=== PATIENT | female | born 1995 | race Asian ===

== ENCOUNTER 2019-01-27 23:26 | Emergency (ER) | payer SELFPAY ==
[~2019-01-27] VITALS: Ht 162.6 cm; Wt 63.5 kg
[~2019-01-27 23:26] MED LIST: PNV1TABL25 PO
[2019-01-27] MEDS ORDERED: ONDANSETRON PF 4 MG/2 ML VIAL. IV ONE (23:45)
[2019-01-27] MEDS ORDERED: IV NORMAL SALINE 1000ML BAG 1,000 ML IV ONE (23:45)
[2019-01-27 23:52] LABS: BILIRUBIN,URINE NEGATIVE (NEG); CLARITY,URINE CLEAR; COLOR,URINE YELLOW; NITRITE,URINE NEGATIVE (NEG); PH,URINE 7.5; PROTEIN,URINE NEGATIVE (NEG-TRACE)
[2019-01-27 23:54] LABS: BASO # 0.1 x10^3/uL (0.0-0.2); BASO % 1 % (0-3); EOS # 0.5 x10^3/uL (0.0-0.7); EOS % 5 % (0-3); HEMATOCRIT 40.1 % (36.0-47.0); HEMOGLOBIN 13.2 g/dL (12.0-15.5); LYMPH # 2.8 x10^3/uL (1.0-4.8); LYMPH % 31 % (24-48); MEAN CORPUSCULAR HEMOGLOBIN 28 pg (25-35); MEAN CORPUSCULAR HGB CONC 33 g/dL (31-37); MEAN CORPUSCULAR VOLUME 85 fL (79-100); MONO # 0.8 x10^3/uL (0.0-1.1); MONO % 9 % (0-9); NEUT % 55 % (31-73); PLATELET COUNT 257 x10^3/uL (140-400); RED BLOOD COUNT 4.73 x10^6/uL (3.50-5.40); RED CELL DISTRIBUTION WIDTH 14.1 % (11.5-14.5); WHITE BLOOD COUNT 9.2 x10^3/uL (4.0-11.0)
[2019-01-27 23:56] LABS: SQUAMOUS EPITHELIAL CELL,UR FEW /LPF
[2019-01-27 23:57] LABS: AMORPHOUS SEDIMENT,UR PRESENT /HPF; BACTERIA,URINE FEW /HPF (0-FEW); RBC,URINE RARE /HPF (0-2)
--- NOTE | 2019-01-27 23:59 | PHYS DOC ---
Past Medical History Past Medical History: No Pertinent History Past Surgical History: No Surgical History Alcohol Use: None Drug Use: None Adult General Chief Complaint Chief Complaint: NAUSEA/VOMITING/DIARRHA HPI HPI Patient is a 23-year-old otherwise healthy female who presents with dizziness, weakness and nausea. She states she is concerned she may be . She has not actually vomited today. She denies any fever chills or sweats. She denies pain anywhere. No vaginal bleeding or discharge. She denies dyspareunia.[] Review of Systems Review of Systems Constitutional: Denies fever or chills [] Eyes: Denies change in visual acuity, redness, or eye pain [] HENT: Denies nasal congestion or sore throat [] Respiratory: Denies cough or shortness of breath [] Cardiovascular: No additional information not addressed in HPI [] GI: Reports nausea[] : Denies dysuria or hematuria [] Musculoskeletal: Denies back pain or joint pain [] Integument: Denies rash or skin lesions [] Neurologic: Denies headache, focal weakness or sensory changes [] Endocrine: Denies polyuria or polydipsia [] All other systems were reviewed and found to be within normal limits, except as documented in this note. Current Medications Current Medications Current Medications Medications (Trade) Dose Ordered Sig/Jaime Start Time Stop Time Status Last Admin Dose Admin Ondansetron HCl (Zofran) 4 mg 1X ONCE 01/27/19 23:45 01/27/19 23:46 DC 01/27/19 23:55 4 MG Sodium Chloride 1,000 ml @ 1,000 mls/hr 1X ONCE 01/27/19 23:45 01/28/19 00:44 01/27/19 23:52 1,000 MLS/HR Allergies Allergies Allergies Coded Allergies Type Severity Reaction Last Updated Verified No Known Drug Allergies 12/31/18 No Physical Exam Physical Exam Constitutional: Well developed, well nourished, no acute distress, non-toxic appearance. [] HENT: Normocephalic, atraumatic, bilateral external ears normal, oropharynx moist, no oral exudates, nose normal. [] Eyes: PERRLA, EOMI, conjunctiva normal, no discharge. [] Neck: Normal range of motion, no tenderness, supple, no stridor. [] Cardiovascular:Heart rate regular rhythm, no murmur [] Lungs & Thorax: Bilateral breath sounds clear to auscultation [] Abdomen: Bowel sounds normal, soft, no tenderness, no masses, no pulsatile masses. [] Skin: Warm, dry, no erythema, no rash. [] Back: No tenderness, no CVA tenderness. [] Extremities: No tenderness, no cyanosis, no clubbing, ROM intact, no edema. [] Neurologic: Alert and oriented X 3, normal motor function, normal sensory function, no focal deficits noted. [] Psychologic: Affect normal, judgement normal, mood normal. [] Current Patient Data Vital Signs Vital Signs Date Time Temp Pulse Resp B/P (MAP) Pulse Ox O2 Delivery O2 Flow Rate FiO2 01/27/19 23:35 98.4 63 12 107/58 (74) 98 Room Air 98.4 Lab Values Laboratory Tests Test 01/27/19 23:30 01/27/19 23:44 01/27/19 23:45 Urine Collection Type Unknown Urine Color Yellow Urine Clarity Clear Urine pH 7.5 Urine Specific [place] 1.020 Urine Protein Negative mg/dL (NEG-TRACE) Urine Glucose (UA) Negative mg/dL (NEG) Urine Ketones (Stick) Negative mg/dL (NEG) Urine Blood Negative (NEG) Urine Nitrite Negative (NEG) Urine Bilirubin Negative (NEG) Urine Urobilinogen Dipstick 1.0 mg/dL (0.2 mg/dL) Urine Leukocyte Esterase Moderate (NEG) Urine RBC Rare /HPF (0-2) Urine WBC 5-10 /HPF (0-4) Urine Squamous Epithelial Cells Few /LPF Urine Amorphous Sediment Present /HPF Urine Bacteria Few /HPF (0-FEW) Urine Mucus Mod /LPF POC Urine HCG, Qualitative Hcg negative (Negative) White Blood Count 9.2 x10^3/uL (4.0-11.0) Red Blood Count 4.73 x10^6/uL (3.50-5.40) Hemoglobin 13.2 g/dL (12.0-15.5) Hematocrit 40.1 % (36.0-47.0) Mean Corpuscular Volume 85 fL (79-100) Mean Corpuscular Hemoglobin 28 pg (25-35) Mean Corpuscular Hemoglobin Concent 33 g/dL (31-37) Red Cell Distribution Width 14.1 % (11.5-14.5) Platelet Count 257 x10^3/uL (140-400) Neutrophils (%) (Auto) 55 % (31-73) Lymphocytes (%) (Auto) 31 % (24-48) Monocytes (%) (Auto) 9 % (0-9) Eosinophils (%) (Auto) 5 % (0-3) H Basophils (%) (Auto) 1 % (0-3) Neutrophils # (Auto) 5.0 x10^3/uL (1.8-7.7) Lymphocytes # (Auto) 2.8 x10^3/uL (1.0-4.8) Monocytes # (Auto) 0.8 x10^3/uL (0.0-1.1) Eosinophils # (Auto) 0.5 x10^3/uL (0.0-0.7) Basophils # (Auto) 0.1 x10^3/uL (0.0-0.2) Sodium Level 141 mmol/L (136-145) Potassium Level 3.7 mmol/L (3.5-5.1) Chloride Level 104 mmol/L (98-107) Carbon Dioxide Level 28 mmol/L (21-32) Anion Gap 9 (6-14) Blood Urea Nitrogen 13 mg/dL (7-20) Creatinine 0.9 mg/dL (0.6-1.0) Estimated GFR (Cockcroft-Gault) 78.3 BUN/Creatinine Ratio 14 (6-20) Glucose Level 86 mg/dL (70-99) Calcium Level 8.7 mg/dL (8.5-10.1) Total Bilirubin 0.4 mg/dL (0.2-1.0) Aspartate Amino Transferase (AST) 18 U/L (15-37) Alanine Aminotransferase (ALT) 22 U/L (14-59) Alkaline Phosphatase 48 U/L (46-116) Total Protein 7.5 g/dL (6.4-8.2) Albumin 3.7 g/dL (3.4-5.0) Albumin/Globulin Ratio 1.0 (1.0-1.7) Lipase 116 U/L (73-393) Laboratory Tests 01/27/19 23:45 Laboratory Tests 01/27/19 23:45 EKG EKG [] Radiology/Procedures Radiology/Procedures [] Course & Med Decision Making Course & Med Decision Making Pertinent Labs and Imaging studies reviewed. (See chart for details) [] Dragon Disclaimer Dragon Disclaimer This electronic medical record was generated, in whole or in part, using a voice recognition dictation system. Departure Departure Impression: Primary Impression: Nausea Additional Impression: Urinary tract infection Disposition: HOME, SELF-CARE Condition: STABLE Referrals: NO PCP (PCP) Patient Instructions: Nausea, Adult, Urinary Tract Infection Additional Instructions: Take medication as directed. Return to the emergency department with any new or concerning symptoms Scripts Sulfamethoxazole/Trimethoprim (BACTRIM DS TABLET) 1 Each Tablet 1 TAB PO BID, #10 TAB Prov: TONE ZAMORA DO 01/28/19 Problem Qualifiers Additional Impression: Urinary tract infection Urinary tract infection type: acute cystitis Hematuria presence: without hematuria Qualified Codes: N30.00 - Acute cystitis without hematuria TONE ZAMORA DO Jan 27, 2019 23:59
[2019-01-28 00:09] LABS: CALCIUM 8.7 mg/dL (8.5-10.1); CREATININE 0.9 mg/dL (0.6-1.0); GFR 78.3; POTASSIUM 3.7 mmol/L (3.5-5.1)
[2019-01-28 00:18] LABS: ALBUMIN 3.7 g/dL (3.4-5.0); TOTAL BILIRUBIN 0.4 mg/dL (0.2-1.0); TOTAL PROTEIN 7.5 g/dL (6.4-8.2)
[2019-01-28] MEDS ORDERED: SULF1TAB24 PO (00:33)
[2019-01-28 00:46] VITALS: BP 114/74
== END 2019-01-28 00:45 | disposition home or self-care (01) ==
LOC: ER 23:26
DX: N30.00 Acute cystitis without hematuria (principal); R42 Dizziness and giddiness
CPT/HCPCS: 36415; 80053; 81001; 81025; 83690; 85025; 87086; 96361; 96374; 99284; J2405; J7030

== ENCOUNTER 2019-06-04 17:34 | Emergency (ER) | payer OTHER ==
[~2019-06-04] VITALS: Ht 162.6 cm; Wt 72.6 kg
[~2019-06-04 17:34] MED LIST changes: +SULF1TAB24 PO
[2019-06-04 19:25] LABS: BILIRUBIN,URINE NEGATIVE (NEG); CLARITY,URINE CLEAR; COLOR,URINE YELLOW; NITRITE,URINE NEGATIVE (NEG); PROTEIN,URINE NEGATIVE (NEG-TRACE); UROBILINOGEN,URINE 0.2 mg/dL (0.2 mg/dL)
[2019-06-04 19:35] LABS: BACTERIA,URINE MODERATE /HPF (0-FEW); RBC,URINE OCC /HPF (0-2); SQUAMOUS EPITHELIAL CELL,UR MOD /LPF
[2019-06-04] MEDS ORDERED: MECLIZINE HCL 12.5 MG TABLET. PO ONE (19:45)
[2019-06-04 19:50] LABS: INFLUENZA A PATIENT NEGATIVE (NEGATIVE); INFLUENZA B PATIENT NEGATIVE (NEGATIVE)
--- NOTE | 2019-06-04 20:00 | PHYS DOC ---
Past Medical History Past Medical History: No Pertinent History (BERNIE RENE APRN) Past Surgical History: No Surgical History (BERNIE RENE APRN) Alcohol Use: None Drug Use: None (BERNIE RENE APRN) Attending Signature I have participated in the care of this patient and I have reviewed and agree with all pertinent clinical information above including history, exam, and recommendations. (PACO HICKEY MD) Adult General Chief Complaint Chief Complaint: NAUSEA/VOMITING/DIARRHA HPI HPI Patient is a 24 year old female who presents with dizziness and nausea that started today. She denies any headache, vomiting, diarrhea, fever, neck pain, back pain, abd pain, dysuria, cough, syncope, visual changes, chest pain, soa. denies pain. (BERNIE RENE APRN) Review of Systems Review of Systems GI: Denies abdominal pain. + nausea, denies vomiting, bloody stools or diarrhea [] Neurologic: Dizziness. Denies headache, focal weakness or sensory changes [] All other systems were reviewed and found to be within normal limits, except as documented in this note. (BERNIE RENE APRN) Current Medications Current Medications Current Medications Medications (Trade) Dose Ordered Sig/Jaime Start Time Stop Time Status Last Admin Dose Admin Meclizine HCl (Antivert) 25 mg 1X ONCE 06/04/19 19:45 06/04/19 19:46 DC 06/04/19 20:30 25 MG (PACO HICKEY MD) Allergies Allergies Allergies Coded Allergies Type Severity Reaction Last Updated Verified No Known Drug Allergies 12/31/18 No (PACO HICKEY MD) Physical Exam Physical Exam Constitutional: Well developed, well nourished, no acute distress, non-toxic appearance. [] HENT: Normocephalic, atraumatic, bilateral external ears normal, oropharynx moist, no oral exudates, nose normal. [] Eyes: PERRLA, EOMI, conjunctiva normal, no discharge. Slight nystagmus.[] Neck: Normal range of motion, no tenderness, supple, no stridor. [] Cardiovascular:Heart rate regular rhythm, no murmur [] Lungs & Thorax: Bilateral breath sounds clear to auscultation [] Abdomen: Bowel sounds normal, soft, no tenderness, no masses, no pulsatile masses. [] Skin: Warm, dry, no erythema, no rash. [] Back: No tenderness, no CVA tenderness. [] Extremities: No tenderness, no cyanosis, no clubbing, ROM intact, no edema. [] Neurologic: Alert and oriented X 3, normal motor function, normal sensory function, no focal deficits noted. [] Psychologic: Affect normal, judgement normal, mood normal. [] (BERNIE RENE APRN) Current Patient Data Vital Signs Vital Signs Date Time Temp Pulse Resp B/P (MAP) Pulse Ox O2 Delivery O2 Flow Rate FiO2 06/04/19 22:15 69 17 118/61 (80) 98 Room Air 06/04/19 19:03 97.9 97.9 (PACO HICKEY MD) Lab Values Laboratory Tests Test 06/04/19 19:15 06/04/19 19:18 Urine Collection Type Unknown Urine Color Yellow Urine Clarity Clear Urine pH 6.0 Urine Specific [place] 1.015 Urine Protein Negative mg/dL (NEG-TRACE) Urine Glucose (UA) Negative mg/dL (NEG) Urine Ketones (Stick) Negative mg/dL (NEG) Urine Blood Negative (NEG) Urine Nitrite Negative (NEG) Urine Bilirubin Negative (NEG) Urine Urobilinogen Dipstick 0.2 mg/dL (0.2 mg/dL) Urine Leukocyte Esterase Moderate (NEG) Urine RBC Occ /HPF (0-2) Urine WBC 1-4 /HPF (0-4) Urine Squamous Epithelial Cells Mod /LPF Urine Bacteria Moderate /HPF (0-FEW) Urine Mucus Marked /LPF Influenza Type A Antigen Negative (NEGATIVE) Influenza Type B Antigen Negative (NEGATIVE) POC Urine HCG, Qualitative Hcg negative (Negative) (PACO HICKEY MD) EKG EKG [] (BERNIE RENE APRN) Radiology/Procedures Radiology/Procedures [] (BERNIE RENE APRN) Impressions: [facility] [address] [place] [address] IMAGING REPORT Signed PATIENT: MELI MOHAN ACCOUNT: [id number] : 1995 LOCATION: ER AGE: 24 SEX: F EXAM STATUS: REG ER ORD. PHYSICIAN: BERNIE RENE APRN REASON: dizzy x today; no trauma PROCEDURE: CT HEAD WO CONTRAST CT head without contrast: Reason for examination: Dizziness tonight. No history,. Axial images were obtained through the brain. No contrast was administered. Exposure: One or more of the following individualized dose reduction techniques were utilized for this examination: 1. Automated exposure control 2. Adjustment of the mA and/or kV according to patient size 3. Use of iterative reconstruction technique. Ventricular systems are symmetric and not abnormally dilated. No midline shift is seen. There is no evidence of intracranial hemorrhage, infarct or edema. 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 No abnormalities are seen at the orbits. There is some mild mucosal disease in some of the left ethmoid air cells. There is also a small fluid level in the left maxillary antrum. The remaining paranasal sinuses are clear. Mastoid air cells are clear. No acute abnormality seen in the skull. 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 Mild mucosal disease in a few of the left ethmoid air cells. Small fluid level in the left maxillary antrum. Recommend clinical correlation and comparison with previous exams if available. Electronically signed by: Myron Shearer MD (06/04/2019 8:35 PM) [facility] DICTATED and SIGNED BY: MYRON SHEARER MD DATE: 06/04/192034 (BERNIE RENE APRN) Course & Med Decision Making Course & Med Decision Making Abdomen soft and nontender. Normal vital signs. PERRLA. Slight nystagmus. Patient states she closes her eyes she is dizzy when she turns her head back and forth makes her dizzy. Lungs normal to Auscultation all lobes. Mucous membranes moist. Skin pink warm and dry. Ambulatory with steady gait. Patient states she is feeling better after getting the meclizine and the dizziness has mostly subsided. 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 Mild mucosal disease in a few of the left ethmoid air cells. Small fluid level in the left maxillary antrum. Recommend clinical correlation and comparison with previous exams if available. [] I spoke with Dr. Brito's nurse practitioner Cecy and Dr. Brito that the CT scan. He states that the patient can follow up with him in office and get a MRI of the brain. He states she is stable and be discharged. (BERNIE RENE APRN) Dragon Disclaimer Dragon Disclaimer This electronic medical record was generated, in whole or in part, using a voice recognition dictation system. (BERNIE RENE APRN) Departure Departure Impression: Primary Impression: Abnormal CT scan, head Disposition: HOME, SELF-CARE Condition: STABLE Referrals: NO PCP (PCP) LIGIA MENDES MD Patient Instructions: Dizziness, [id number] Additional Instructions: FOLLOW UP WITH DR MENDES IN OFFICE. CALL SOON POSSIBLE. Scripts Meclizine Hcl (MECLIZINE HCL) 12.5 Mg Tablet 1 TAB PO BID, #14 TAB Prov: BERNIE RENE APRN 06/04/19 BERNIE RENE APRN Jun 04, 2019 20:00 PACO HICKEY MD Jun 05, 2019 07:30
--- NOTE | 2019-06-04 20:38 | RAD ---
CT head without contrast: Reason for examination: Dizziness tonight. No history,. Axial images were obtained through the brain. No contrast was administered. Exposure: One or more of the following individualized dose reduction techniques were utilized for this examination: 1. Automated exposure control 2. Adjustment of the mA and/or kV according to patient size 3. Use of iterative reconstruction technique. Ventricular systems are symmetric and not abnormally dilated. No midline shift is seen. There is no evidence of intracranial hemorrhage, infarct or edema. 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 No abnormalities are seen at the orbits. There is some mild mucosal disease in some of the left ethmoid air cells. There is also a small fluid level in the left maxillary antrum. The remaining paranasal sinuses are clear. Mastoid air cells are clear. No acute abnormality seen in the skull. 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 Mild mucosal disease in a few of the left ethmoid air cells. Small fluid level in the left maxillary antrum. Recommend clinical correlation and comparison with previous exams if available. Electronically signed by: Aubere Dinero MD (06/04/2019 8:35 PM) [facility]
[2019-06-04] MEDS ORDERED: MECL12.573 PO (21:55)
[2019-06-04 22:15] VITALS: BP 118/61
== END 2019-06-04 22:15 | disposition home or self-care (01) ==
LOC: ER 17:34
DX: R93.0 Abnormal findings on diagnostic imaging of skull and head, not elsewhere classified (principal); R42 Dizziness and giddiness; R11.0 Nausea
CPT/HCPCS: 70450; 81001; 81025; 87086; 87804; 99285; J8597